=== PATIENT | male | born 2000 | race Caucasian/White ===

== ENCOUNTER 2020-04-07 19:07 | Emergency (ER) | payer BC ==
[2020-04-07] MEDS ORDERED: LORAZEPAM INJ 2 MG/1 ML VIAL IV ONE (20:49)
--- NOTE | 2020-04-07 21:42 | RADIOLOGY REPORT (SQ) ---
EXAM DESCRIPTION: CT HEAD WITHOUT IV CONTRAST COMPLETED DATE/TME: 04/07/2020 21:16 CLINICAL HISTORY: 19 years, Male, new onset seizure COMPARISON: None. TECHNIQUE: Axial images without IV contrast. Sagittal coronal reconstruction. Images stored on PACS. All CT scanners at this facility use dose modulation, iterative reconstruction, and/or weight based dosing when appropriate to reduce radiation dose to as low as reasonably achievable (ALARA). FINDINGS: Small normal for age ventricles. No suspicious intra-axial or extra-axial abnormality. Paranasal sinuses, mastoid air cells and bony calvarium are unremarkable. IMPRESSION: Unremarkable noncontrast CT of the head.
[2020-04-07 23:33] LABS: ABSOLUTE LYMPHOCYTES (AUTO) 1.7 10^3/uL (0.5-4.7); ABSOLUTE MONOCYTES (AUTO) 1.1 10^3/uL (0.1-1.4); ABSOLUTE NEUT (AUTO) 11.8 10^3/uL (1.7-8.2); BASOPHILS % (AUTO) 0.3 % (0-2); HEMATOCRIT 40.8 % (37.9-51.0); HEMOGLOBIN 14.3 g/dL (13.5-17.0); LYMPHOCYTES % (AUTO) 11.5 % (13-45); MEAN CORPUSCULAR HEMOGLOBIN 31.3 pg (27.0-33.4); MEAN CORPUSCULAR HGB CONC 35.1 g/dL (32.0-36.0); MEAN CORPUSCULAR VOLUME 89 fl (80-97); MONOCYTES % (AUTO) 7.7 % (3-13); PLATELET COUNT 238 10^3/uL (150-450); RED BLOOD COUNT 4.58 10^6/uL (4.35-5.55); RED CELL DISTRIBUTION WIDTH 13.1 % (11.5-14.0); SEGMENTED NEUTROPHILS % (AUTO) 80.5 % (42-78); TOTAL CELLS COUNTED % (AUTO) 100 %; WHITE BLOOD COUNT 14.7 10^3/uL (4.0-10.5)
[2020-04-08] LABS: ALCOHOL < 10 mg/dL (NONE DETECTED)
[2020-04-08 00:34] LABS: ALBUMIN 4.9 g/dL (3.7-5.6); ALKALINE PHOSPHATASE 84 U/L (65-260); ANION GAP 10 (5-19); ASPARTATE AMINO TRANSFERASE 33 U/L (10-45); BILIRUBIN,DIRECT 0.1 mg/dL (0.0-0.4); BILIRUBIN,TOTAL 0.5 mg/dL (0.2-1.3); BLOOD UREA NITROGEN 13 mg/dL (7-20); CALCIUM 9.8 mg/dL (8.4-10.2); CARBON DIOXIDE 25 mmol/L (22-30); CHLORIDE 104 mmol/L (98-107); GLUCOSE 95 mg/dL (75-110); POTASSIUM 3.8 mmol/L (3.6-5.0); TOTAL PROTEIN 7.8 g/dL (6.3-8.2)
--- NOTE | 2020-04-08 01:34 | ER Document Report ---
ED Seizure - General Chief Complaint: Probable Seizure Stated Complaint: POSSIBLE SEIZURE Time Seen by Provider: 04/07/20 20:28 Primary Care Provider: STEVEN DENNIS MD [Primary Care Provider] - Follow up as needed Mode of Arrival: Ambulatory Information source: Patient - HPI Patient complains to provider of: First seizure Notes: Patient had a witnessed tonic-clonic seizure at his job site this afternoon. 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 They were working on installing duct work in a new home all day today. Patient states that he did not have much to eat or drink all day. He is also under little bit of stress because he started a new semester in college and he has new classes. He denies any alcohol use. The only drug use he admits to is using Xanax 0.5 mg twice daily which he obtains off the street. He has done this for a long time for treatment of his underlying anxiety. He states that he did not miss any doses and his last dose was this morning before he went to work. He maintains that he does not overuse the medication nor does he use any other illicit drugs. He has never had a seizure before. He is never had any head trauma. 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 He has not been recently acutely ill. 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 Past Surgical History: Reports: Hx Orthopedic Surgery - right ankle terndon release - Immunizations Immunizations up to date: Yes Hx Diphtheria, Pertussis, Tetanus Vaccination: Yes Review of Systems - Review of Systems Notes: All other systems reviewed are negative or noncontributory except as noted in the present illness. Physical Exam - Vital signs Vitals: Temp Pulse Resp BP Pulse Ox 98.0 F 109 H 18 127/71 H 100 04/07/20 19:18 04/07/20 19:18 04/07/20 19:18 04/07/20 19:18 04/07/20 19:18 - Notes Notes: General: This is a slender young adult male who appears somewhat anxious but in no acute distress. Vital signs and nursing documentation are reviewed. HEENT normocephalic atraumatic. EOMI. PERRLA. ENT otherwise grossly normal. Neck: Supple, trachea midline no adenopathy. Chest: Normal configuration, lungs clear to auscultation. Heart: Regular rate and rhythm no murmur rub or gallop. Abdomen: Soft nontender no mass guarding or rigidity or guarding. Extremities: Without clubbing cyanosis edema or deformity. Skin: Warm moist good turgor no rashes. Neuro: Patient is quite anxious and he recognizes and admits this. Cranial nerves II through XII are intact bilaterally. He has no motor or sensory deficits. Strength is 5/5 in all groups in all 4 extremities. Course - Re-evaluation Re-evalutation: 04/08/20 01:32 The patient rested comfortably throughout his stay and remained awake alert fully oriented. He had no observed seizure activity in the emergency department. He was accompanied by his mother, who works for a local neurology office and stated that she could get him in for a follow-up appointment fairly quickly and that they have capability for doing EEG and other neurologic testing. We talked about him not driving for the specified time in the [place] statutes which I believe is 60 days. He also understands the potential risks of illicit Xanax use especially since there is no way of verifying that what he is buying is pure. The patient stated that he had a great deal of difficulty urinating in public. 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 He was not able to produce a urine specimen for us here despite multiple efforts to do so. He was willing to try but was just unable. Because of this his tox screen was not completed. I explained to the patient and his mother that we generally do not start patients on medication after their first seizure since we do not know if it is going to be a 1 off event and there is no endpoint and also because most neurologist prefer to do their diagnostic testing in the unmedicated state. However I emphasized that if he had another seizure that that would change things and that if he does seize again he should return to the emergency department for reevaluation. - Vital Signs Vital signs: Temp Pulse Resp BP Pulse Ox 98.0 F 109 H 15 130/87 H 100 04/07/20 19:18 04/07/20 19:18 04/08/20 00:01 04/08/20 00:00 04/08/20 00:01 - Laboratory Results Result Diagrams: 04/07/20 23:21 04/07/20 23:21 Laboratory Results Interpreted: 04/07/20 04/07/20 23:21 23:21 WBC 14.7 H Lymph % (Auto) 11.5 L Absolute Neuts (auto) 11.8 H Seg Neutrophils % 80.5 H Magnesium 2.4 H Critical Laboratory Results Reviewed: No Critical Results - Radiology Results Radiology Results Interpreted: 04/08/20 01:[address] 04/07/20 20:47 IMPRESSION: Unremarkable noncontrast CT of the head. Critical Radiology Results Reviewed: No Critical Results Discharge - Discharge Clinical Impression: New onset seizure without head trauma Condition: Good Disposition: HOME, SELF-CARE Instructions: New Seizure ([facility]) Additional Instructions: Follow-up with your neurologist within the next 7 days for evaluation. No driving for any reason until you are cleared to do so by your neurologist. Return to the emergency department if you have another seizure or if any other concerning symptoms develop. Referrals: STEVEN DENNIS MD [Primary Care Provider] - Follow up as needed
[2020-04-08 01:54] VITALS: BP 110/74
== END 2020-04-08 01:52 | disposition home or self-care (01) ==
LOC: ER 19:07
DX: R56.9 Unspecified convulsions (principal)
CPT/HCPCS: 99285; 96374; 36415; 80307; 83735; 84443; 85025; 80053; 70450; J2060